=== PATIENT | male | born 1955 | race Caucasian/White ===

== ENCOUNTER 2016-12-18 13:21 | Emergency (ER) | payer OTHER ==
[2016-12-18] MEDS ORDERED: SILVER NITRATE APPLICATOR 1 APPL TP ONE (13:25)
[2016-12-18] MEDS ORDERED: LETS SOLN TOPICAL 1 EA SYR TP ONE (13:25)
[2016-12-18] MEDS ORDERED: OXYMETAZOLINE 30 ML NASAL SPRAY EACHNARE ONE (13:25)
[2016-12-18 13:26] VITALS: RESP 20
--- NOTE | 2016-12-18 13:26 | EDPHY ---
H & P Time Seen by Provider: 12/18/16 13:25 HPI/ROS: CHIEF COMPLAINT: Epistaxis HISTORY OF PRESENT ILLNESS: 61-year-old maleNo male with no anticoagulant use history of coagulopathic disorder, no prior history of epistaxis arrives via private vehicle complaining of epistaxis for the past 45 minutes, bilaterally. No dizziness. No digital trauma. No headache. No nausea no vomiting. No chest pain. No dyspnea. PRIMARY CARE PROVIDER: REVIEW OF SYSTEMS: A ten point review of systems was performed and is negative with the exception of the items mentioned in the HPI PAST MEDICAL & SURGICAL HISTORY: No coagulopathic disorder SOCIAL HISTORY: PHYSICAL EXAM (Prior to examination, patient consented to physical exam, hands were washed and my usual and customary physical exam procedures followed) 1) GENERAL: Well-developed, well-nourished, alert and oriented. Appears to be in no acute distress. 2) HEAD: Normocephalic, atraumatic 3) HEENT: Pupils equal, round, reactive to light bilaterally. Sclera anicteric. Nasopharynx: Area of active bleeding right side anterior aspect noted. Left-sided he no active bleeding, old clots noted. 4) NECK: Full range of motion, no meningeal signs. 5) LUNGS: Clear auscultation bilaterally 6) HEART: Regular rate and rhythm 7) ABDOMEN: No guarding, no rebound, no focal tenderness,, 8) MUSCULOSKELETAL: No peripheral edema or discoloration. 9) BACK: no visual or palpable abnormality. 10) SKIN: No rash, no petechiae. DIFFERENTIAL DIAGNOSIS: [ in no particular include but limited to anterior epistaxis, posterior epistaxis, septal hematoma Smoking Status: Never smoked Constitutional: Initial Vital Signs Temperature (C) 36.6 C 12/18/16 13:23 Heart Rate 65 12/18/16 13:23 Respiratory Rate 20 12/18/16 13:23 Blood Pressure 143/84 H 12/18/16 13:23 O2 Sat (%) 97 12/18/16 13:23 O2 Delivery Mode Room Air Allergies/Adverse Reactions: No Known Allergies Allergy (Unverified 12/18/16 13:22) Home Medications: Medication Instructions Recorded Omeprazole 12/18/16 MDM/Departure - MDM Procedures: Procedure: Epistaxis control. Indication: nosebleed not controlled by direct pressure. Risks, benefits, alternatives discussed with patient and consent obtained. Clots blown out. The right nares was anesthetized with LAT. The anterior epistaxis was identified. The patient was treated with silver nitrate cautery. Following the procedure the patient was re-examined and the bleeding was well controlled. The patient tolerated the procedure well. The procedure was performed by myself. At discharge the patient's nose is hemostatic. Medications Given: Discontinued Medications Oxymetazoline HCl (Afrin Nasal [place]) 2 sprays EACHNARE EDNOW ONE Stop: 12/18/16 13:26 Last Admin: 12/18/16 14:34 Dose: 2 sprays Silver Nitrate/Potassium Nitrate (Silver Nitrate Applicator) 3 each TP EDNOW ONE Stop: 12/18/16 13:26 Last Admin: 12/18/16 14:34 Dose: 3 each Tetracaine/Epinephrine/Lidocaine (Lets Soln Topical) 1 ea TP EDNOW ONE Stop: 12/18/16 13:26 Last Admin: 12/18/16 14:34 Dose: 1 ea - Depart Disposition: Home, Routine, Self-Care Clinical Impression: Acute anterior epistaxis Condition: Good Instructions: Nosebleed (ED) Additional Instructions: If you develop further nosebleeds place direct pressure for 20 minutes and if you developed continued nose bleeds after this return to the ER. Referrals: DR CRISTEL [Other] - 1 day without fail
[2016-12-18 14:57] VITALS: BP 140/92; PULSE 78; TEMP 98.2; O2SAT 98
== END 2016-12-18 14:57 | disposition home or self-care (01) ==
PROC: 2Y41X5Z Packing of Nasal Region using Packing Material (ICD-10-PCS; principal; 2016-12-18)
DX: R04.0 Epistaxis (principal)